=== PATIENT | female | born 1980 | race Caucasian/White ===

== ENCOUNTER 2021-01-28 11:22 | Emergency (ER) | payer OTHER ==
--- NOTE | 2021-01-28 13:45 | ER ---
Nurse's Notes [facility] Name: Jina Xavier Age: 40 yrs Sex: Female : 1980 Arrival Date: 01/28/2021 Time: 11:29 Bed 18 Private MD: Diagnosis: Presentation: 01/28 12:03 Chief complaint: Patient states: Blood drawn 2 weeks ago, sugar 490. Was told to come ll1 to ER for eval.. Coronavirus screen: Client denies travel out of the [place] in the last 14 days. At this time, the client does not indicate any symptoms associated with coronavirus-19. Ebola Screen: Patient denies travel to an Ebola-affected area in the 21 days before illness onset. Initial Sepsis Screen: Does the patient meet any 2 criteria? HR > 90 bpm. No. Patient's initial sepsis screen is negative. Does the patient have a suspected source of infection? No. Patient's initial sepsis screen is negative. Risk Assessment: Do you want to hurt yourself or someone else? Patient reports no desire to harm self or others. Onset of symptoms was January 10, 2021. 12:03 Method Of Arrival: Ambulatory ll1 12:03 Acuity: IVONE 2 ll1 Historical: - Allergies: 12:06 Levofloxacin; ll1 12:06 ketorolac tromethamine; ll1 12:06 Aspirin; ll1 - PMHx: 12:06 None; ll1 - PSHx: 12:06 Tonsillectomy; vaginal reconstruction; ll1 - Immunization history:: Flu vaccine is up to date. - Social history:: Smoking status: Patient reports the use of cigarette tobacco products, smokes one-half pack cigarettes per day. Assessment: 13:41 Reassessment: Reassessment: pt not in lobby , called her on cell phone, states she is iw going to work and cannot wait any longer, pt states she has a f/u with Carolina Daley this week. Vital Signs: 12:03 BP 142 / 65; Pulse 95; Resp 18; Temp 98.1; Pulse Ox 95% ; Weight 175.09 kg; Height 5 ll1 ft. 8 in. (172.72 cm); Pain 10/10; 12:03 Body Mass Index 58.69 (175.09 kg, 172.72 cm) ll1 ED Course: 11:29 Patient arrived in ED. mr 12:05 Triage completed. ll1 12:06 Arm band placed on Patient notified of wait time. ll1 12:06 Notified Charge Nurse of New onset diabetes. Fingerstick 469 in triage. ll1 12:09 Kate Gonzalez FNP-C [facility] kenneth 12:09 Louie Blackman MD is Attending Physician. kb Administered Medications: No medications were administered Outcome: 13:43 Eloped from waiting room, before seeing physician Time discovered patient gone: January at 13:44 13:44 Patient left the ED. Signatures: Kate Gonzalez FNP-C FNP-Denia Hood mr Lena Oneal RN RN iw Eliu Clement RN RN ll1 Corrections: (The following items were deleted from the chart) 12:13 12:03 Acuity: IVONE 3 ll1 ll1 13:43 13:41 Reassessment: [facility]
== END 2021-01-28 13:44 | disposition left against medical advice (07) ==
LOC: ER 11:22
DX: E11.65 Type 2 diabetes mellitus with hyperglycemia (principal); Z53.21 Procedure and treatment not carried out due to patient leaving prior to being seen by health care provider; F17.210 Nicotine dependence, cigarettes, uncomplicated
CPT/HCPCS: 82947; 99281

== ENCOUNTER 2021-01-31 16:14 | Emergency (ER) | payer OTHER ==
[2021-01-31 17:37] LABS: Arterial Blood Carboxyhemoglob 4.1 % (0-1.5); Blood Gas Oxyhemoglobin 90.6 % (94-97); Blood O2 Saturation 95.5 % (92-98.5)
[2021-01-31 17:48] LABS: Absolute Lymphocytes (CBC) 2.1 K/uL (0.7-4.9); Basophils % 0.9 % (0-1.3); Hematocrit 44.9 % (36.0-45.0); Lymphocytes % 20.4 % (15.3-44.8); MPV 10.1 fL (7.6-11.3); RBC Red Blood Cell Count 4.82 M/uL (3.86-4.86)
[2021-01-31 18:04] LABS: ALT/SGPT 71 U/L (12-78); Albumin 3.6 g/dL (3.4-5.0); Alkaline Phosphatase 148 U/L (45-117); BUN Blood Urea Nitrogen 12 mg/dL (7-18); Bicarbonate 25 mmol/L (21-32); Bilirubin Total 0.5 mg/dL (0.2-1.0); Protein, Total 7.5 g/dL (6.4-8.2); Sodium Level 129 mmol/L (136-145)
[2021-01-31 18:05] LABS: AST/SGOT 40 U/L (15-37); Potassium 4.4 mmol/L (3.5-5.1)
[2021-01-31 18:06] LABS: Glucose Level 556 mg/dL (74-106)
[2021-01-31] MEDS ORDERED: INSULIN -REGULAR HUMAN 50 UNIT/0.5 ML ML ONE (18:20)
[2021-01-31] MEDS ORDERED: NA CHLORIDE 0.9% 1,000 ML ONE (18:20)
[2021-01-31] MEDS ORDERED: NA CHLORIDE 0.9% 2,000 ML ONE (19:40)
[2021-01-31 23:06] LABS: Potassium 4.1 mmol/L (3.5-5.1)
--- NOTE | 2021-01-31 23:39 | ER ---
Nurse's Notes [facility] Name: Jina Xavier Age: 40 yrs Sex: Female : 1980 Arrival Date: 01/31/2021 Time: 16:17 Bed 23 Private MD: Diagnosis: Hyperglycemia, unspecified Presentation: 01/31 17:09 Chief complaint: Patient states: was seen at Dr. Washington office and got a BS of over iw 600, pt has been dealing with high BS, not previously diagnosed with diabetes, just started seeing Dr. Cuevas today , pt also reports feeling dizzy. Coronavirus screen: At this time, the client does not indicate any symptoms associated with coronavirus-19. Ebola Screen: Patient negative for fever greater than or equal to 101.5 degrees Fahrenheit, and additional compatible Ebola Virus Disease symptoms Patient denies exposure to infectious person. Patient denies travel to an Ebola-affected area in the 21 days before illness onset. No symptoms or risks identified at this time. Initial Sepsis Screen: Does the patient meet any 2 criteria? No. Patient's initial sepsis screen is negative. Does the patient have a suspected source of infection? No. Patient's initial sepsis screen is negative. Risk Assessment: Do you want to hurt yourself or someone else? Patient reports no desire to harm self or others. Onset of symptoms was January 31, 2021. 17:09 Method Of Arrival: Wheelchair iw 17:09 Acuity: IVONE 2 iw Historical: - Allergies: 17:12 Aspirin; iw 17:12 ketorolac tromethamine; iw 17:12 Levofloxacin; iw - Home Meds: 17:12 Metformin Oral [Active]; iw - PSHx: 17:12 Tonsillectomy; vaginal reconstruction; cervix; iw - Immunization history:: Adult Immunizations up to date. - Social history:: Smoking status: Patient reports the use of cigarette tobacco products, smokes one-half pack cigarettes per day. Screenin:30 Abuse screen: Denies threats or abuse. Nutritional screening: No deficits noted. em Tuberculosis screening: No symptoms or risk factors identified. Fall Risk None identified. Assessment: 17:03 Reassessment: pt not in lobby. iw 17:27 General: Appears in no apparent distress. Behavior is calm, cooperative. Neuro: Level iw of Consciousness is awake, alert, obeys commands, Oriented to person, place, time, situation. Derm: Skin is intact. 20:00 Reassessment: Patient appears in no apparent distress at this time. Patient and/or em family updated on plan of care and expected duration. Pain level reassessed. Patient is alert, oriented x 3, equal unlabored respirations, skin warm/dry/pink. 23:50 Reassessment: Patient and/or family updated on plan of care and expected duration. Pain ea level reassessed. Patient is alert, oriented x 3, equal unlabored respirations, skin warm/dry/pink. Discharge instruction given to patient, verbalized the understanding of instruction. pt left ED ambulatory tolerating well . Vital Signs: 17:09 BP 135 / 75; Pulse 103; Resp 18 S; Temp 98.5; Pulse Ox 98% on R/A; Weight 172.82 kg; iw Height 5 ft. 8 in. (172.72 cm); 23:30 BP 128 / 70; Pulse 98; Resp 18; Temp 98.2; Pulse Ox 98% ; ea 17:09 Body Mass Index 57.93 (172.82 kg, 172.72 cm) iw ED Course: 16:17 Patient arrived in ED. as 17:11 Triage completed. iw 17:12 Arm band placed on. iw 17:21 Jose Carranza PA is PHCP. [facility] 17:21 Channing Ryan MD is Attending Physician. m 17:27 Inserted saline lock: 20 gauge in right antecubital area, using aseptic technique. iw 19:20 García Pina, RN is Primary Nurse. em 19:30 Patient has correct armband on for positive identification. Bed in low position. Call em light in reach. 23:49 IV discontinued, intact, bleeding controlled, No redness/swelling at site. Pressure tt3 dressing applied. 23:50 No provider procedures requiring assistance completed. ea Administered Medications: 18:10 Drug: NS 0.9% 1000 ml Route: IV; Rate: 1 bolus; Site: right antecubital; iw 20:00 Follow up: IV Status: Completed infusion; IV Intake: 1000ml em 18:10 Drug: Insulin Regular Human 10 units {Co-Signature: em (García Pina RN).} Route: IVP; iw Site: right antecubital; 20:01 Drug: NS 0.9% 2000 ml Route: IV; Rate: 1 bolus; Site: left wrist; em 23:00 Follow up: IV Status: Completed infusion; IV Intake: 2000ml em Intake: 20:00 IV: 1000ml; Total: 1000ml. em 23:00 IV: 2000ml; Total: 3000ml. em Outcome: 23:39 Discharge ordered by MD. joss 23:50 Discharged to home ambulatory, with family. bita 23:50 Condition: stable 23:50 Discharge instructions given to patient, Instructed on discharge instructions, follow up and referral plans. medication usage, Demonstrated understanding of instructions, follow-up care, medications, Prescriptions given X 1. 23:50 Patient left the ED. ea Signatures: Jose Carranza PA PA jmm Munoz, Edgar, Brittny Bob RN, Irene, RN Evangelina Langley RN RN ea Trim, Tyler tt3 García Pina RN
--- NOTE | 2021-01-31 23:40 | EDPHYS ---
Physician Documentation [facility] Name: Jina Xavier Age: 40 yrs Sex: Female : 1980 Arrival Date: 01/31/2021 Time: 16:17 Bed 23 Private MD: ED Physician Channing Ryan HPI: 01/31 17:22 This 40 yrs old Female presents to ER via Wheelchair with complaints of High jmm Blood Sugar. 17:22 The patient or guardian reports hyperglycemia, polydipsia, polyuria. Onset: The jmm symptoms/episode began/occurred gradually, at an unknown time. Current symptoms: In the emergency department the patient's symptoms are unchanged from the initial presentation. Patient evaluated by pcp and advised to go to the ED due to elevated glucose. Denies sob, vomiting. Historical: - Allergies: 17:12 Aspirin; iw 17:12 ketorolac tromethamine; iw 17:12 Levofloxacin; iw - Home Meds: 17:12 Metformin Oral [Active]; iw - PSHx: 17:12 Tonsillectomy; vaginal reconstruction; cervix; iw - Immunization history:: Adult Immunizations up to date. - Social history:: Smoking status: Patient reports the use of cigarette tobacco products, smokes one-half pack cigarettes per day. ROS: 17:22 Constitutional: Negative for fever, chills, and weight loss, Cardiovascular: Negative jmm for chest pain, palpitations, and edema, Respiratory: Negative for shortness of breath, cough, wheezing, and pleuritic chest pain. 17:22 Endocrine: Positive for polydipsia, polyuria. 17:22 All other systems are negative. Exam: 17:22 Constitutional: This is a well developed, well nourished patient who is awake, alert, jmm and in no acute distress. Head/Face: atraumatic. Eyes: EOMI, no conjunctival erythema appreciated ENT: Moist Mucus Membranes Neck: Trachea midline, Supple Chest/axilla: Normal chest wall appearance and motion. Cardiovascular: Regular rate and rhythm. No edema appreciated Respiratory: Normal respirations, no respiratory distress appreciated Abdomen/GI: Non distended, soft Back: Normal ROM Skin: General appearance color normal MS/ Extremity: Moves all extremities, no obvious deformities appreciated, no edema noted to the lower extremities Neuro: Awake and alert, normal gait Psych: Behavior is normal, Mood is normal, Patient is cooperative and pleasant Vital Signs: 17:09 BP 135 / 75; Pulse 103; Resp 18 S; Temp 98.5; Pulse Ox 98% on R/A; Weight 172.82 kg; iw Height 5 ft. 8 in. (172.72 cm); 23:30 BP 128 / 70; Pulse 98; Resp 18; Temp 98.2; Pulse Ox 98% ; ea 17:09 Body Mass Index 57.93 (172.82 kg, 172.72 cm) iw MDM: 17:54 Patient medically screened. [facility] 23:38 Data reviewed: vital signs, nurses notes. Counseling: I had a detailed discussion with [facility] the patient and/or guardian regarding: the historical points, exam findings, and any diagnostic results supporting the discharge/admit diagnosis, lab results, the need for outpatient follow up, to return to the emergency department if symptoms worsen or persist or if there are any questions or concerns that arise at home. ED course: No DKA, Patient is advised to follow up with pcp tomorrow for reevaluation. patient understood and agrees with the plan of care. . 01/31 17:22 Order name: CBC with Diff; Complete Time: 18:25 [facility] 01/31 17:22 Order name: CMP; Complete Time: 18:22 [facility] 01/31 17:22 Order name: Acetone, Serum; Complete Time: 18:22 [facility] 01/31 17:22 Order name: ABG; Complete Time: 18:22 [facility] 01/31 17:38 Order name: Glucose, Ancillary Testing; Complete Time: 17:55 [facility] 01/31 20:02 Order name: BMP: after IVF [facility] 01/31 17:22 Order name: Saline Lock; Complete Time: 17:27 [facility] 01/31 17:22 Order name: Urine Dipstick-Ancillary (obtain specimen); Complete Time: 18:30 [facility] 01/31 23:07 Order name: Basic Metabolic Panel; Complete Time: 23:13 [facility] Administered Medications: 18:10 Drug: NS 0.9% 1000 ml Route: IV; Rate: 1 bolus; Site: right antecubital; iw 20:00 Follow up: IV Status: Completed infusion; IV Intake: 1000ml em 18:10 Drug: Insulin Regular Human 10 units {Co-Signature: em (García Pina RN).} Route: IVP; iw Site: right antecubital; 20:01 Drug: NS 0.9% 2000 ml Route: IV; Rate: 1 bolus; Site: left wrist; em 23:00 Follow up: IV Status: Completed infusion; IV Intake: 2000ml em Disposition: 01/31/21 23:39 Discharged to Home. Impression: Hyperglycemia, unspecified. - Condition is Stable. - Discharge Instructions: Hyperglycemia. - Prescriptions for Metformin 500 mg Oral Tablet - take 1 tablet by ORAL route once daily for 7 days Then take 1 tablet with morning meals AND evening meals; 21 tablet. - Medication Reconciliation Form, Thank You Letter, Antibiotic Education, Prescription Opioid Use, Work release form form. - Follow up: Private Physician; When: Tomorrow; Reason: Recheck today's complaints, Continuance of care, Re-evaluation by your physician. Addendum: 02/02/2021 07:15 Co-signature as Attending Physician, Channing Ryan MD I agree with the assessment and k dr plan of care. Signatures: Dispatcher [employer] EDChanning Ghotra MD MD [facility] Jose Carranza PA PA jmm Munoz, Edgar, RN RN em Lena Oneal RN RN iw Evangelina Dove RN RN ea García Pina RN em Corrections: (The following items were deleted from the chart) 01/31 23:50 23:39 01/31/2021 23:39 Discharged to Home. Impression: Hyperglycemia, unspecified. ea Condition is Stable. Forms are Medication Reconciliation Form, Thank You Letter, Antibiotic Education, Prescription Opioid Use. Follow up: Private Physician; When: Tomorrow; Reason: Recheck today's complaints, Continuance of care, Re-evaluation by your physician. joss
[2021-02-01 10:35] VITALS: BP 135/75; TEMP 98.5; O2SAT 98
== END 2021-01-31 23:50 | disposition home or self-care (01) ==
LOC: ER 16:14
DX: R73.9 Hyperglycemia, unspecified (principal); F17.210 Nicotine dependence, cigarettes, uncomplicated; Z88.3 Allergy status to other anti-infective agents; Z88.6 Allergy status to analgesic agent; Z88.8 Allergy status to other drugs, medicaments and biological substances
CPT/HCPCS: 96361; 85025; 80048; 36415; 82010; 82947; 80053; 82805; 96374; 99283; J7030 ×2